=== PATIENT | male | born 1950 ===

== ENCOUNTER 2017-09-07 23:05 | Emergency (ER) | payer SELFPAY ==
[2017-09-07 23:54] VITALS: RESP 20
--- NOTE | 2017-09-08 00:01 | C.PDOC ---
Time Seen by Provider: 09/08/17 00:00 Chief Complaint (Nursing): Chest Pain Past Medical History Reviewed: Historical Data, Nursing Documentation, Vital Signs Vital Signs: Last Vital Signs Temp 98.1 F 09/07/17 23:53 Pulse 83 09/07/17 23:53 Resp 20 09/07/17 23:53 BP 137/78 09/07/17 23:53 Pulse Ox 98 09/08/17 00:01 Family History: States: No Known Family Hx - Social History Hx Alcohol Use: No Hx Substance Use: No - Immunization History Hx Influenza Vaccination: No Hx Pneumococcal Vaccination: No ED Course And Treatment ECG: Interpreted By Me, Viewed By Me ECG Rhythm: Sinus Rhythm (80), 1st Degree HB, ST/T Changes (inf ischemic changes ) O2 Sat by Pulse Oximetry: 98 Pulse Ox Interpretation: Normal - Radiology CXR: Interpreted by Me, Viewed By Me Progress Note: No ASA given due to his allergy to aspirin Disposition Counseled Patient/Family Regarding: Studies Performed, Diagnosis - Disposition Disposition Time: 00:01 Forms: [employer] (Mongolian)
[2017-09-08 00:29] LABS: BASO # 0.1 K/uL (0.0-0.2); BASO % 1.3 % (0.0-2.0); EOS # 0.3 K/uL (0.0-0.7); EOS % 3.4 % (0.0-4.0); HEMOGLOBIN 13.7 g/dL (12.0-18.0); LYMPH # 2.7 K/uL (1.0-4.3); LYMPH % 31.4 % (20.0-40.0); MEAN CELL VOLUME 85.1 fL (80.0-94.0); MEAN PLATELET VOLUME 8.4 fL (7.2-11.7); MONO # 0.6 K/uL (0.0-0.8); MONO % 7.4 % (0.0-10.0); NEUT # 4.8 K/uL (1.8-7.0); NEUT % 56.5 % (50.0-75.0); RBC 4.73 Mil/uL (4.40-5.90); RED CELL DISTRIBUTION WIDTH 13.9 % (11.5-14.5); WHITE BLOOD COUNT 8.6 K/uL (4.8-10.8)
[2017-09-08 00:42] LABS: ALB/GLOB RATIO 1.1 (1.0-2.1); ALBUMIN 4.4 g/dL (3.5-5.0); ALT/SGPT 41 U/L (21-72); AST/SGOT 34 U/L (17-59); BLOOD UREA NITROGEN 14 mg/dL (9-20); CALCIUM 9.2 mg/dl (8.6-10.4); GFR AFRICAN-AMERICAN > 60; GFR NON-AFRICAN AMERICAN > 60; HDL CHOLESTEROL 32 mg/dL (30-70); LIPASE 135 U/L (23-300)
[2017-09-08 00:52] LABS: LDL CHOLESTEROL 104 mg/dL (0-129)
[2017-09-08 01:19] VITALS: BP 147/76; PULSE 77; TEMP 97.1; O2SAT 100
--- NOTE | 2017-09-08 01:32 | C.PDOC ---
History Of Present Illness 67 year old male with PMH of HTN presents to the ER with a complaint of left chest pain that began an hour ago. Patient states the pain is intermittent and radiates to the shoulder. Denies SOB, nausea, dizziness, weakness, numbness. Patient has an allergy to aspirin, he states he took an "nerve reliever" from the [place]. JEN Risk Score for UA/NSTEMI - JEN Risk Score Age > 64: YES 3 or more CAD Risk Factors: NO Known CAD (Stenosis greater than 50%): NO Aspirin use in past 7 days: NO Severe Angina: NO EKG ST changes greater than 0.5mm: NO Positive Cardiac Marker: NO JEN Score: 1 % risk at 14 days of: all cause mortality, new or recurrent PR, or severe recurrent ischemia requiring urgen revascularization: 5% Wells Criteria for PE - Wells Criteria for Pulmonary Embolism Clinical Signs and Symptoms of DVT: No P.E is #1 Diagnosis, or Equally Likely: No Heart Rate >100: No Immobilization at least 3 days;Surgery previous 4 weeks: No Previous, objectively diagnosed PE or DVT: No Hemoptysis: No Malignancy w/treatment within 6 months, or palliative: No Total Score: 0 Curb-65 Severity Score - CURB-65 Severity Score Confusion: No Bun >19mg/dl (>7mmol/L): No Respiratory Rate greater than/equal to 30: No Systolic BP <90 or Diastolic BP less than/equal 60mmHg: No Age >64: Yes Curb-65 Score: 1 Percentage 30-day mortality: 2.7% Time Seen by Provider: 09/08/17 00:00 Chief Complaint (Nursing): Chest Pain History Per: Patient History/Exam Limitations: no limitations Onset/Duration Of Symptoms: Hrs Current Symptoms Are (Timing): Still Present Associated Symptoms: denies: Nausea, Dyspnea, Diaphoresis, Syncope Modifying Factors: None Exacerbating Factors: None Alleviating Factors: None Recent travel outside of the [place]: No Past Medical History Reviewed: Historical Data, Nursing Documentation, Vital Signs Vital Signs: Last Vital Signs Temp 97.1 F L 09/08/17 01:18 Pulse 77 09/08/17 01:18 Resp 20 09/08/17 01:18 BP 147/76 09/08/17 01:18 Pulse Ox 100 09/08/17 01:57 - Medical History PMH: HTN Surgical History: No Surg Hx Family History: States: Unknown Family Hx - Social History Hx Alcohol Use: No Hx Substance Use: No - Immunization History Hx Influenza Vaccination: No Hx Pneumococcal Vaccination: No Review Of Systems Constitutional: Negative for: Fever, Chills Cardiovascular: Positive for: Chest Pain Gastrointestinal: Negative for: Nausea Musculoskeletal: Positive for: Shoulder Pain (Radiating from chest) Neurological: Negative for: Weakness, Numbness, Dizziness Physical Exam - Physical Exam Appears: Non-toxic, No Acute Distress Skin: Warm, Dry, No Diaphoretic, No Pale Head: Atraumatic, Normacephalic Eye(s): bilateral: Normal Inspection, EOMI Oral Mucosa: Moist Neck: Normal, Supple Chest: Symmetrical, No Tenderness Cardiovascular: Rhythm Regular, No Murmur Respiratory: Normal Breath Sounds, No Rales, No Rhonchi, No Wheezing Gastrointestinal/Abdominal: Soft, No Tenderness Extremity: Bilateral: Atraumatic, No Pedal Edema, Normal Color And Temperature, Normal ROM Neurological/Psych: Oriented x3, Normal Speech Gait: Steady ED Course And Treatment - Laboratory Results Result Diagrams: 09/08/17 00:23 09/08/17 00:23 Lab Interpretation: No Acute Changes ECG: Interpreted By Me (Dr Matthew), Viewed By Me ECG Rhythm: 1st Degree HB, ST/T Changes ECG Interpretation: No Acute Changes Interpretation Of ECG: inf ischemic changes Rate From EC O2 Sat by Pulse Oximetry: 100 (Room air) Pulse Ox Interpretation: Normal - Radiology CXR: Interpreted by Me, Viewed By Me CXR Interpretation: Yes: COPD Medical Decision Making Medical Decision Making: Impression: 67 year old male with chest pain Plan: * EKG * Blood work * CXR Progress: Labs reviewed with no acute findings. Troponin negative. No electrolyte abnormality. CXR shows hyperinflation of lungs, normal heart size, no infiltrates or effusion EKG viewed by Dr Matthew Patient was placed on aircraft servicer. He was not given as Aspirin because of allergy Patient observed in ED and had no chest pain during evaluation. Based on clinical presentation, must rule out ACS. Plan is to admit for observation and repeat cardiac labs and consult cardiology. Explain the plan to patient however he refuses admission. Patient reports he will be traveling in the next few days and does not wish to stay in the hospital. This action is against my medical advice to the patient and the decision was made with informed refusal. The patient was told that admission is necessary and a full explanation of the rationale was given. The risks of leaving were explained to the patient and include, but are not limited to, ACS, CVA, worsening of known or currently unknown conditions, permanent disability and from undiagnosed or untreated conditions The patient has the capacity to make this informed decision and understands the clinical situation and my explanation of the risks of leaving. The patient voluntarily accepts these risks , and a signed AMA form documenting our conversation was obtained at [id number]. The patient was encouraged to return to the Emergency Department at any time for further care. Disposition - Disposition Disposition: AGAINST MEDICAL ADVICE Disposition Time: 01:55 Condition: STABLE Additional Instructions: Fuiste visto por dolor en el pecho Usted posada elegido dejar el hospital para evitar el consejo mdico Es importante que el un seguimiento con dowling mdico Regrese al departamento de emergencia en cualquier momento si los sntomas persisten o empeoran. Instructions: Leaving Against Medical Advice Print Language: LAO - POA Present On Arrival: None - Clinical Impression Clinical Impression: Chest pain, Left against medical advice - PA / AGRICULTURE SCIENTIST / Resident Statement MD/DO has reviewed & agrees with the documentation as recorded. - Scribe Statement The provider has reviewed the documentation as recorded by the Scribwilma Esteves All medical record entries made by the Scribe were at my direction and personally dictated by me. I have reviewed the chart and agree that the record accurately reflects my personal performance of the history, physical exam, medical decision making, and the department course for this patient. I have also personally directed, reviewed, and agree with the discharge instructions and disposition.
--- NOTE | 2017-09-08 08:30 | RAD ---
HISTORY: chest pain COMPARISON: No prior. TECHNIQUE: Chest PA and lateral FINDINGS: LUNGS: No active pulmonary disease. PLEURA: No significant pleural effusion identified. No pneumothorax apparent. CARDIOVASCULAR: Normal. OSSEOUS STRUCTURES: No significant abnormalities. VISUALIZED UPPER ABDOMEN: Normal. OTHER FINDINGS: None. IMPRESSION: No active disease.
--- NOTE | 2017-09-08 11:06 | CARD ---
APPROVED REPORT EKG Measurement Heart [id number] <Conclusion> Normal sinus rhythm Possible Left atrial enlargement ST & T wave abnormality, consider inferior ischemia Abnormal ECG
== END 2017-09-08 02:00 | disposition left against medical advice (07) ==
LOC: C.ER 23:05
DX: R07.9 Chest pain, unspecified (principal); I10 Essential (primary) hypertension